=== PATIENT | male | born 1970 | race Caucasian/White ===

== ENCOUNTER → 2023-09-06 13:00 | Outpatient (REF) | payer SELFPAY | LOC: HWRAD 13:00 | PROVIDERS: ATTENDING PHYSICIAN Internal Medicine Cardiovascular Disease; FAMILY PHYSICIAN Family Medicine | DX: I48.0 Paroxysmal atrial fibrillation (principal); I45.10 Unspecified right bundle-branch block; I10 Essential (primary) hypertension | CPT/HCPCS: 75571 ==